=== PATIENT | female | born 1990 | race Native Hawaiian/Other Pacific Islander ===

== ENCOUNTER 2016-11-24 13:45 | Outpatient (CLI) | payer OTHER | END 2016-11-24 19:10 | disposition home or self-care (01) | LOC: US 13:45 | DX: M79.661 Pain in right lower leg (principal) ==

== ENCOUNTER 2017-08-15 17:07 | Outpatient (CLI) | payer OTHER | END 2017-08-15 19:03 | disposition home or self-care (01) | LOC: RAD 17:07 | DX: M79.672 Pain in left foot (principal) ==

== ENCOUNTER 2017-08-23 15:20 | Outpatient (CLI) | payer OTHER | END 2017-08-23 22:42 | disposition home or self-care (01) | LOC: CT 15:20 | DX: M79.672 Pain in left foot (principal) ==

== ENCOUNTER 2022-12-18 15:59 | Outpatient (CLI) | payer OTHER | END 2022-12-18 19:30 | disposition home or self-care (01) | LOC: US 15:59 | PROVIDERS: ATTEND Registered Nurse | DX: N93.9 Abnormal uterine and vaginal bleeding, unspecified (principal) ==